=== PATIENT | female | born 1980 | race American Indian/Alaskan Native ===

== ENCOUNTER 2017-08-22 19:57 | Emergency (ER) | payer OTHER ==
[2017-08-23] MEDS ORDERED: CLARITIN ONE (08:13)
[2017-08-23] MEDS ORDERED: AUGMENTIN 875 MG ONE (08:13)
== END 2017-08-22 19:58 | disposition left against medical advice (07) ==
LOC: ED 19:57
DX: O26.891 Other specified pregnancy related conditions, first trimester (principal); R10.2 Pelvic and perineal pain; Z3A.00 Weeks of gestation of pregnancy not specified; Z53.21 Procedure and treatment not carried out due to patient leaving prior to being seen by health care provider

== ENCOUNTER 2017-12-08 07:37 | Inpatient (IN) | payer OTHER ==
[2017-12-08] MEDS ORDERED: ZOFRAN ONE (07:46)
[2017-12-08] MEDS ORDERED: LACTATED RINGERS 1,000 ML ONE ×2 (07:56→12:32)
[2017-12-08] MEDS ORDERED: COLACE PO PRN (08:13)
[2017-12-08] MEDS ORDERED: TYLENOL PO PRN (08:13)
--- NOTE | 2017-12-08 08:25 | History and Physical Report ---
History of Present Illness Date of examination: 12/08/17 (pt presented to Triage with c/o pain after taking 2 laxatives) Chief complaint: "I took 2 laxatives because I was so constipated." History of present illness: EDC Confirmation: 02/21/2018 Gestational Age: 7 5/7 weeks Past History : 3 Premature Births: 2 Living Children: 2 Para: 2 # 1 Delivery date: 1996 Weeks Gestation: 35 labor: yes Delivery type: Anesthesia type: none Delivery location: [facility] Sex: Female weight: 4-12 Comments: PTL # 2 Delivery date: 2000 Weeks Gestation: 36 Delivery type: Anesthesia type: none Delivery location: [place] Infant Sex: Female weight: 5-13 Comments: dilated - painful ctx Risk Factors: Smoked Tobacco Use: Never smoker Smokeless Tobacco Use: Never Passive smoke exposure: no Drug use: no HIV high-risk behavior: low risk Caffeine use: 0 drinks per day Alcohol use: yes Type: occ Drinks per day: <1 Seatbelt use: preg-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 Infection History Hx of STD: none HIV Risk Eval: low risk Hepatitis B Risk Eval: low risk Personal hx. of genital herpes: no Partner hx. of genital herpes: no Rash, Viral, or Febrile illness since last LMP? no Varicella/Chicken Pox Status: Previous Disease TB Risk: no Genetic History ADVANCED MATERNAL AGE Congenital Heart Defect: Mom: no Dad: no Ivett Disease: Mom: no Dad: no Thalassemia Mom: no Dad: no Neural Tube Defect Mom: no Dad: no Down's Syndrome Mom: no Dad: no Edward-Sachs Mom: no Dad: no Sickle Cell Disease/Trait Mom: no Dad: no Hemophilia Mom: no Dad: no Muscular Dystrophy Mom: no Dad: no Cystic Fibrosis Mom: no Dad: no Yoly Chorea Mom: no Dad: no Mental Retardation Mom: no Dad: no Fragile X Mom: no Dad: no Other Genetic/Chromosomal Disorder Mom: no Dad: no Child w/other defect Mom: no Dad: no Enviromental Exposures Xray Exposure: no Medication, drug, or alcohol use since LMP: no Chemical/Other Exposure: no Exposure to Cat Liter: no Hx of Parvovirus (Fifth Disease): no Occupational Exposure to Children: none Current Allergies: No known allergies Past History - Obstetrical History Expected Date of Delivery: 02/21/18 Actual Gestation: 29 Week(s) 2 Day(s) : 3 Para: 2 Hx # Term Pregnancies: 0 Number of Pregnancies: 2 Spontaneous Abortions: 0 Induced : 0 Number of Living Children: 2 Medications and Allergies Allergies Allergy/AdvReac Type Severity Reaction Status Date / Time No Known Allergies Allergy Verified 02/06/16 07:58 Home Medications Medication Instructions Recorded Confirmed Last Taken Type No Known Home Medications [No 02/06/16 02/06/16 Unknown History Reported Home Medications] - Vital Signs Vital signs: Vital Signs Temp 97.8 F 12/08/17 07:59 Temp Pulse Resp BP Pulse Ox 97.8 F 61 189/91 12/08/17 07:59 12/08/17 08:02 12/08/17 08:02 - Physical Exam Breasts: Positive: deferred Cardiovascular: Regular rate, Normal S1, Normal S2 Lungs: Positive: Normal air movement Abdomen: Positive: normal appearance, soft, normal bowel sounds. Negative: distention, tenderness Genitourinary (Female): Positive: normal external genitalia Vulva: both: normal Vagina: Positive: normal moisture. Negative: discharge Cervix: Negative: lesion, discharge Uterus: Positive: normal size, normal contour Adnexa: both: normal Anus/Rectum: Positive: normal perianal skin, heme negative. Negative: rectal mass, hemorrhoids Extremities: Positive: edema Deep Tendon Reflex Grade: Normal +2 - Obstetrical FHR: category 1 Uterine Contraction Monitor Mode: External Cervical Dilatation: 1 Cervical Effacement Percentage: 30 station: -5 Uterine Contraction Frequency (min): q1-2 Uterine Contraction Duration: 50 Uterine Contraction Pattern: Regular Uterine Tone Measurement Phase: Resting Uterine Contraction Intensity: Moderate Results Result Diagrams: 12/08/17 08:36 12/08/17 08:36 All other labs normal. HBsAg Screen Negative Negative *1 RPR Non Reactive Non Reactive *2 Rubella Antibodies, IgG 1.07 index Immune >0.99 *3 Non-immune <0.90 Equivocal 0.90 - 0.99 Immune >0.99 ABO Grouping O *4 Rh Factor Positive *5 Please note: Prior records for this patient's ABO / Rh type are not available for additional verification. Antibody Screen Negative Negative *6 WBC 7.0 x10E3/uL 3.4-10.8 *7 RBC [L] 3.65 x10E6/uL 3.77-5.28 *8 Hemoglobin 11.1 g/dL 11.1-15.9 *9 Hematocrit [L] 33.0 % 34.0-46.6 *10 MCV 90 fL 79-97 *11 MCH 30.4 pg 26.6-33.0 *12 MCHC 33.6 g/dL 31.5-35.7 *13 RDW 13.8 % 12.3-15.4 *14 Platelets 258 x10E3/uL 150-379 *15 Neutrophils 65 % Not Estab. *16 Lymphs 26 % Not Estab. *17 Monocytes 8 % Not Estab. *18 Eos 1 % Not Estab. *19 Basos 0 % Not Estab. *20 ! Immature Cells <No Reported Value> *21 Neutrophils (Absolute) 4.5 x10E3/uL 1.4-7.0 *22 Lymphs (Absolute) 1.8 x10E3/uL 0.7-3.1 *23 Monocytes(Absolute) 0.6 x10E3/uL 0.1-0.9 *24 Eos (Absolute) 0.1 x10E3/uL 0.0-0.4 *25 Baso (Absolute) 0.0 x10E3/uL 0.0-0.2 *26 ! Immature Granulocytes 0 % Not Estab. *27 ! Immature Grans (Abs) 0.0 x10E3/uL 0.0-0.1 *28 ! NRBC <No Reported Value> *29 Hematology Comments: <No Reported Value> *30 Tests: (2) Panel 707909 ([id number]) HIV Screen 4th Generation wRfx Non Reactive Non Reactive *31 Tests: (3) HCV Ab w/Rflx to Verification (228582) ! HCV Ab <0.1 s/co ratio 0.0-0.9 *32 Tests: (4) Comment: (557722) ! Comment: SPRCS *33 Non reactive HCV antibody screen is consistent with no HCV infection, unless recent infection is suspected or other evidence exists to indicate HCV infection. Tests: (5) Urine Culture, Routine (940907) Urine Culture, Routine Final report *34 Tests: (6) Result (039487) ! Result 1 VIRIST *35 Viridans streptococcus group 10,000-25,000 colony forming units per mL Susceptibility not normally performed on this organism. Assessment and Plan Pt presented to Triage with c/o constipation States she took 2 little pink pills but does not know the name of the medication. Ketan Q 1-2 min SVE 1 , thick, high. BP 200/100 X 2 Decision to admit to APU for evaluation and monitoring. aware. [facility] labs MGSO4 Apresoline ordered. US ordered. - Patient Problems (1) 29 weeks gestation of Onset Date: ~12/08/17 Current Visit: Yes Status: Acute (2) Elevated blood pressure affecting in third trimester, antepartum Onset Date: ~12/08/17 Current Visit: Yes Status: Acute (3) uterine contractions in third trimester, antepartum Onset Date: ~12/08/17 Current Visit: Yes Status: Acute
[2017-12-08] MEDS ORDERED: APRESOLINE ONE ×2 (08:30→19:10)
[2017-12-08] MEDS ORDERED: BRETHINE ONE (08:46)
[2017-12-08 08:50] LABS: Bacteria,Urine 1+ /HPF (Negative); Bilirubin,Urine NEG (Negative); Blood,Urine SM (Negative); Color,Urine Yellow (Yellow); Mucus,Urine 2+ /HPF; Urobilinogen,Urine < 2.0 mg/dL (<2.0)
[2017-12-08] MEDS ORDERED: MAGNESIUM SULFATE 40GM/1000ML 40 GM/1,000 ML BAG IV SCH ×2 (09:00→11:00)
[2017-12-08] MEDS ORDERED: CELESTONE SOLUSPAN IM SCH (09:00)
[2017-12-08] MEDS ORDERED: APRESOLINE IV ONE ×2 (09:00→19:00)
[2017-12-08] MEDS ORDERED: BRETHINE SUB-Q ONE (09:00)
[2017-12-08] MEDS ORDERED: MAGNESIUM SULFATE 4GM/100ML 4 GM/100 ML BAG IV ONE (09:00)
[2017-12-08 09:12] LABS: Hematocrit 32.8 % (30.3-42.9); Hemoglobin 10.9 gm/dl (10.1-14.3); Mean Corpuscular HGB Conc 33 % (30-34); Mean Corpuscular Hemoglobin 30 pg (28-32); Mean Corpuscular Volume 91 fl (79-97); Platelet Count 137 K/mm3 (140-440); Red Blood Count 3.62 M/mm3 (3.65-5.03); Red Cell Distribution Width 13.6 % (13.2-15.2)
[2017-12-08 09:16] LABS: Alanine Aminotransferase 370 units/L (7-56); Uric Acid 4.4 mg/dL (3.5-7.6)
[2017-12-08 09:18] LABS: Albumin 3.2 g/dL (3.9-5); BUN/Creatinine Ratio 15; Blood Urea Nitrogen 9 mg/dL (7-17); Calcium 8.9 mg/dL (8.4-10.2); Hemolysis Index 91
[2017-12-08] MEDS ORDERED: PEPCID IV ONE ×2 (09:28→14:43)
[2017-12-08] MEDS ORDERED: PITOCin/NS 20 UNIT/1000ML DRIP 20,000 MILLIUNITS/1,000 ML BAG IV ONE (09:28)
[2017-12-08] MEDS ORDERED: BICITRA ONE (09:28)
[2017-12-08] MEDS ORDERED: REGLAN ONE (09:28)
[2017-12-08] MEDS ORDERED: ANCEF/STERILE WATER 2 GM/20 ML 2 GM/20 ML SYRINGE IV ONE (09:28)
[2017-12-08] MEDS ORDERED: XYLOCAINE MPF 2% ONE (09:40)
[2017-12-08] MEDS ORDERED: SUBLIMAZE ONE ×3 (09:40→10:31)
[2017-12-08] MEDS ORDERED: QUELICIN ONE (09:40)
[2017-12-08] MEDS ORDERED: DIPRIVAN 10 MG/ML IV ONE (09:40)
[2017-12-08] MEDS ORDERED: ANCEF/STERILE WATER 2 GM/20 ML IV ONE (09:46)
[2017-12-08] MEDS ORDERED: NACL 0.9% IR ONE (10:00)
[2017-12-08] MEDS ORDERED: WATER FOR IRRIG STERILE IR ONE (10:00)
[2017-12-08 10:06] LABS: Basophils % (Manual) 0 % (0.0-1.8); Eosinophils % (Manual) 0 % (0.0-4.3); Myelocytes # (Manual) 0.5 K/mm3; Total Cells Counted 100
[2017-12-08 10:07] LABS: Anisocytosis 1+; Platelet Estimate Consistent w Auto
--- NOTE | 2017-12-08 10:10 | Event Note ---
Date: 12/08/17 (deep variable decels noted) Pt turned from side to side O2 on. enroute US @ BS to observe FHR 114 drops to 6o Stat c/s called in house has agreed to start section. Explained to pt need for operative intervention Consents signed. C/S prep done.
--- NOTE | 2017-12-08 10:16 | Operative Report ---
Operative Report Operative Report: DATE: 01/04/2018 PREOPERATIVE DIAGNOSIS: 37-year-old at 29+4 weeks, category 3 tracing POSTOP DIAGNOSIS: As above NAME OF PROCEDURE: Emergency Primary low transverse section SURGEON: STEPHANIE WEINSTEIN MD TELEPHONE OPERATOR: Tereza Vu CNM ANESTHESIA: General EBL: 750 mL (see Dr. Fong's notes for details) FINDINGS: See Dr. Fong's note BRIEF NOTE: Called emergently and notified patient having recurrent decelerations, category 3 tracing with stat called. Provider Dr. Fong in route DESCRIPTION OF PROCEDURE: After informed consent, patient was taken to the operating room where she was prepped and draped in a sterile fashion. Pfannestial incision was performed 2 cm above the pubic symphysis. This was then carried down to the underlying rectus fascia which was scored in the midline. The fascial incision was extended bluntly manually, the rectus was manually and the peritoneal cavity was entered without difficulty. After good visualization of the bladder the peritoneal layer was extended up and down; bladder blade was placed in the patient's pelvic cavity. A hysterotomy incision was then performed with clear amniotic fluid noted. in cephalic presentation was delivered without difficulty in the usual manner; cord was clamped cut and was handed over to waiting NICU staff. The placenta was then delivered intact, the uterus was then exteriorized cleared of all clots and debris. I then signed out the case to the provider Dr. Fong.
--- NOTE | 2017-12-08 10:20 | Ultrasound Report ---
OB ULTRASOUND History gestational hypertension. Technique: Transabdominal ultrasound with Doppler interrogation. Gestation: Single Position: Cephalic Amniotic Fluid: Borderline increased GIFTY = 24.3 cm Placenta: Anterior Placental Grade: 1 Heart Rate: 145 BPM BPD: 7.3 cm = 29 w 2 d HC: 26.5 cm = 28 w 6 d AC: 25.2 cm = 29 w 3 d FL: 5.7 cm = 29 w 5 d HC/AC Ratio: 1.05 Cephalic Index: 83.3 Estimated Weight: 1392 grams Clinical age = 29 w 2 d EDC: 02/21/18 US Gest. Age = 29 w 2 d EDC: 02/21/18 IMPRESSION: Viable, single intrauterine as described. No evidence for abruption.
[2017-12-08] MEDS ORDERED: NARCAN 0.4 MG/1 ML IV PRN (10:54)
[2017-12-08] MEDS ORDERED: DILAUDID PCA 6MG/30ML IV SCH (11:00)
[2017-12-08 12:05] LABS: Total Volume,Urine TNR
[2017-12-08] MEDS: LACTATED RINGERS 500 ML IV SCH (12:40)
--- NOTE | 2017-12-08 13:05 | Post Anesthesia Evaluation ---
- Post Anesthesia Evaluation Patient Participated: Yes Airway Patent: Yes Stable Respiratory Function: Yes Nausea/Vomiting: No Temp > 96.8F: Yes Pain Manageable: Yes Adequeate Hydration: Yes
--- NOTE | 2017-12-08 13:05 | Anesthesia Consultation ---
Anesthesia Consult and Med Hx Date of service: 12/08/17 - Airway Anesthetic Teeth Evaluation: Good ROM Head & Neck: Adequate Mental/Hyoid Distance: Adequate Mallampati Class: Class III Intubation Access Assessment: Good - Pulmonary Exam CTA: Yes - Cardiac Exam Cardiac Exam: No Murmur - Pre-Operative Health Status ASA Pre-Surgery Classification: ASA3 Proposed Anesthetic Plan: General - Pulmonary Hx Asthma: Yes
--- NOTE | 2017-12-08 13:50 | Operative Report ---
Operative Report Operative Report: Date of procedure: 12/08/2017 Pre-operative diagnosis: Intrauterine at 29 weeks with severe preeclampsia and severe bradycardia Post-operative diagnosis: Same Procedure name(s): Stat primary low transverse section Surgeon: Elvin Fong MD, surgery started by Dr. Pratt Head Counselor: [] Anesthesia: Gen. EBL: 750 mL Complications: none Findings: Female infant weight and Apgars not available at time of dictation Specimen(s): Placenta Procedure: Please see Dr. Tyler start of surgery with incision delivering the and delivery of placenta. I took over with the closing of the uterus The uterine incision was closed in layers. The first incision was closed in a locking manner using 0 Vicryl. This was followed by imbricating stitch also with 0 Vicryl. This closure was hemostatic. The bladder flap was copiously irrigated and found to be hemostatic. The pelvis was copiously irrigated and found to be hemostatic. The uterus was then placed back to the patient's abdomen. Surgicel was placed across the uterine incision. The retractors were removed. The rectus muscles were inspected and found to be hemostatic. The fascia was then closed in a running manner using 0 Vicryl. This incision was hemostatic irrigation Bovie. The skin was reapproximated with 4-0 Vicryl subcuticularly. The patient tolerated procedure well. Her urine was clear. The was admitted to the intensive care nursery. The patient was awakened in operating room. The patient was accompanied to recovery room in good condition. Instrument count correct 3.
[2017-12-08 14:34] LABS: Alanine Aminotransferase 368 units/L (7-56)
[2017-12-08] MEDS ORDERED: REGLAN IV ONE (14:43)
[2017-12-08] MEDS ORDERED: BICITRA PO ONE (14:43)
[2017-12-08] MEDS ORDERED: LASIX IV SCH ×2 (15:00)
[2017-12-08] MEDS ORDERED: PITOCin/NS 20 UNIT/1000ML DRIP 20 UNITS/1,000 ML BAG IV SCH (15:00)
[2017-12-08] MEDS ORDERED: ANCEF/STERILE WATER 2 GM/20 ML 2 GM/20 ML SYRINGE IV NR (15:00)
[2017-12-08] MEDS ORDERED: LACTATED RINGERS 1,000 ML IV SCH (15:00)
--- NOTE | 2017-12-08 16:22 | Event Note ---
Date: 12/08/17 (called by RN report elevated BP) BP 170-160/90 Pt sleeping soundly Urine output [address]Youngblood Leos Labetalol 200mg po BID
[2017-12-08] MEDS: NORMODYNE PO SCH ×2 (16:38→21:51)
[2017-12-08 19:58] LABS: Basophils % (Auto) 0.2 % (0.0-1.8); Hematocrit 33.4 % (30.3-42.9); Hemoglobin 10.9 gm/dl (10.1-14.3); Lymphocytes # (Auto) 0.8 K/mm3 (1.2-5.4); Lymphocytes % (Auto) 7.4 % (13.4-35.0); Mean Corpuscular HGB Conc 33 % (30-34); Mean Corpuscular Hemoglobin 31 pg (28-32); Mean Corpuscular Volume 95 fl (79-97); Monocytes # (Auto) 0.6 K/mm3 (0.0-0.8); Monocytes % (Auto) 5.9 % (0.0-7.3); Red Blood Count 3.51 M/mm3 (3.65-5.03); Red Cell Distribution Width 14.6 % (13.2-15.2)
[2017-12-08 20:19] LABS: Albumin 3.2 g/dL (3.9-5); BUN/Creatinine Ratio 16; Blood Urea Nitrogen 8 mg/dL (7-17); Hemolysis Index 302
[2017-12-08 20:30] LABS: Calcium 7.5 mg/dL (8.4-10.2)
[2017-12-08 20:31] LABS: Alanine Aminotransferase 321 units/L (7-56)
[2017-12-08 20:56] LABS: Amphetamine Screen,Urine PRESUMPTIVE NEGATIVE; Benzodiazepines Screen,Urine PRESUMPTIVE NEGATIVE; Cannabinoid Screen,Urine PRESUMPTIVE NEGATIVE; Cocaine Screen,Urine PRESUMPTIVE NEGATIVE; Methadone Screen,Urine PRESUMPTIVE NEGATIVE; Opiate Screen,Urine PRESUMPTIVE NEGATIVE
[2017-12-08] MEDS ORDERED: BENADRYL ONE (21:51)
[2017-12-08] MEDS ORDERED: BANOPHEN PO PRN (21:54)
[2017-12-08] MEDS ORDERED: BENADRYL IV ONE (21:54)
[2017-12-08] MEDS ORDERED: NORMODYNE PO SCH (22:00)
[2017-12-09] MEDS: LACTATED RINGERS 500 ML IV SCH (00:10)
[2017-12-09 00:36] LABS: Platelet Count 37 K/mm3 (140-440)
[2017-12-09] MEDS ORDERED: PITOCin/NS 20 UNIT/1000ML DRIP 20 UNITS/1,000 ML BAG IV SCH (01:28)
[2017-12-09] MEDS ORDERED: LANSINOH TP PRN (01:28)
[2017-12-09] MEDS ORDERED: TUCKS PAD TP PRN (01:28)
[2017-12-09] MEDS ORDERED: MOTRIN PO PRN (01:28)
[2017-12-09] MEDS ORDERED: SODIUM CHLORIDE FLUSH SYRINGE 10 ML IV PRN (01:28)
[2017-12-09] MEDS ORDERED: D5LR 1,000 ML IV SCH (01:28)
[2017-12-09] MEDS ORDERED: MILK OF MAGNESIA PO PRN (01:28)
[2017-12-09] MEDS ORDERED: NARCAN 0.4 MG/1 ML IV PRN (01:28)
[2017-12-09] MEDS: ANCEF/NS 1 GM/50 ML 1 GM/50 ML BAG IV SCH ×2 (01:52→10:26)
[2017-12-09 02:26] LABS: Basophils % (Auto) 0.1 % (0.0-1.8); Hematocrit 25.5 % (30.3-42.9); Hemoglobin 8.4 gm/dl (10.1-14.3); Lymphocytes # (Auto) 0.8 K/mm3 (1.2-5.4); Lymphocytes % (Auto) 5.2 % (13.4-35.0); Mean Corpuscular HGB Conc 33 % (30-34); Mean Corpuscular Hemoglobin 30 pg (28-32); Mean Corpuscular Volume 90 fl (79-97); Monocytes % (Auto) 7.1 % (0.0-7.3); Platelet Count 118 K/mm3 (140-440); Red Blood Count 2.84 M/mm3 (3.65-5.03); Red Cell Distribution Width 13.5 % (13.2-15.2)
[2017-12-09 02:44] LABS: Alanine Aminotransferase 249 units/L (7-56); BUN/Creatinine Ratio 11; Blood Urea Nitrogen 8 mg/dL (7-17); Calcium 6.5 mg/dL (8.4-10.2); Hemolysis Index 8
[2017-12-09] MEDS ORDERED: MAGNESIUM SULFATE 40GM/1000ML 40 GM/1,000 ML BAG IV SCH (03:00)
[2017-12-09 07:23] LABS: Hematocrit 21.7 % (30.3-42.9); Hemoglobin 7.2 gm/dl (10.1-14.3); Lymphocytes # (Auto) 0.8 K/mm3 (1.2-5.4); Lymphocytes % (Auto) 5.9 % (13.4-35.0); Mean Corpuscular HGB Conc 33 % (30-34); Mean Corpuscular Hemoglobin 30 pg (28-32); Mean Corpuscular Volume 89 fl (79-97); Monocytes % (Auto) 7.6 % (0.0-7.3); Red Blood Count 2.43 M/mm3 (3.65-5.03); Red Cell Distribution Width 13.9 % (13.2-15.2)
[2017-12-09 07:55] LABS: Platelet Count 94 K/mm3 (140-440)
--- NOTE | 2017-12-09 08:06 | Progress Note ---
Assessment and Plan - Patient Problems (1) HELLP syndrome (HELLP), third trimester Current Visit: Yes Status: Acute Plan to address problem: -con't to monitor labs -LFTs treanding down / Platelets have dropped on recent labs. Will repeat in am -cont magnesuim x 24 hours will d/c this pm -bps are well controlled at this time -UOP is adequate (2) Delivery by emergency section Current Visit: Yes Status: Acute Plan to address problem: routine pp care will xfer to mother/baby at this time Subjective - Subjective Date of service: 12/09/17 Principal diagnosis: POD #1 s/p stat c/s d/t NRFT with Pre E/ HEELP Interval history: pt states pain is well controlled. no c/o at this time. Pt desires to eat this am. Will start with clear diet and ADAT. Patient reports: appetite normal, voiding normally (with vuong cath still in place due to still being of Magnesium), pain well controlled, no flatus, no bowel movement Tyro: in NICU Objective - Vital Signs Latest vital signs: Vital Signs Temp Pulse Resp BP BP Pulse Ox 12/09/17 08:01 76 96 12/09/17 07:56 75 111/61 96 12/09/17 07:55 96.7 F L 76 15 111/61 12/09/17 07:51 78 97 12/09/17 07:46 91 H 95 12/09/17 07:41 82 96 12/09/17 07:36 81 94 12/09/17 07:31 78 95 12/09/17 07:28 86 106/57 12/09/17 07:26 81 95 12/09/17 07:21 80 95 12/09/17 07:16 79 95 12/09/17 07:11 80 94 12/09/17 07:06 79 94 12/09/17 07:01 84 95 12/09/17 06:56 82 94 12/09/17 06:51 80 94 12/09/17 06:46 83 94 12/09/17 06:41 83 94 12/09/17 06:36 82 92 12/09/17 06:31 84 92 12/09/17 06:28 82 98/50 12/09/17 06:26 83 94 12/09/17 06:21 82 94 09/04/18 06:16 82 94 04/18 06:11 86 95 04/18 06:06 94 H 94 12/09/18 06:01 83 94 04/18 05:56 82 95 04/18 05:51 83 94 04/18 05:46 83 95 12/09/18 05:41 84 94 04/18 05:36 84 95 12/09/18 05:31 84 95 04/18 05:28 83 106/55 18 05:26 84 95 /04/18 05:21 87 95 12/09/18 05:16 84 96 18 05:11 96 H 95 18 05:06 85 95 18 05:01 84 95 18 04:56 84 95 18 04:51 83 96 18 04:46 85 95 12/09/18 04:41 84 95 18 04:36 88 94 18 04:31 84 95 18 04:28 82 100/54 18 04:26 84 95 12/09/18 04:21 85 95 12/09/18 04:16 85 94 12/09/18 04:11 86 94 18 04:06 86 94 18 04:01 87 95 12/09/18 03:56 87 94 12/09/18 03:51 86 94 //18 03:46 88 94 18 03:41 86 95 04/18 03:36 86 94 18 03:31 84 95 04/18 03:28 86 102/54 18 03:26 85 95 /04/18 03:21 85 95 04/18 03:16 82 96 04/18 03:11 85 94 04/18 03:06 84 95 12/09/18 03:03 97.6 F 16 18 03:01 83 95 12/09/18 03:00 83 94 /04/18 02:56 83 95 04/18 02:51 89 96 18 02:46 99 H 95 18 02:44 97 H 93 12/09/17 02:41 86 94 12/09/17 02:38 83 93 12/09/17 02:36 82 97 12/09/17 02:31 87 97 12/09/17 02:28 81 135/82 12/09/17 02:26 83 96 12/09/17 02:21 82 97 12/09/17 02:16 82 96 12/09/17 02:11 80 96 12/09/17 02:06 84 96 12/09/17 02:01 86 96 12/09/17 01:56 84 97 12/09/17 01:51 88 97 12/09/17 01:46 90 97 12/09/17 01:42 88 94 12/09/17 01:41 92 H 94 12/09/17 01:36 84 97 12/09/17 01:31 87 96 12/09/17 01:28 85 122/73 12/09/17 01:26 86 96 12/09/17 01:21 87 96 12/09/17 01:16 86 96 12/09/17 01:11 85 97 12/09/17 01:06 85 96 12/09/17 01:01 86 96 12/09/17 00:56 87 96 12/09/17 00:51 86 96 12/09/17 00:46 87 96 12/09/17 00:41 86 97 12/09/17 00:36 86 98 12/09/17 00:31 92 H 98 12/09/17 00:28 88 127/71 12/09/17 00:26 88 97 12/09/17 00:21 85 96 12/09/17 00:16 86 97 12/09/17 00:11 84 97 12/09/17 00:06 86 96 12/09/17 00:01 84 97 12/08/17 23:56 85 96 12/08/17 23:51 85 96 12/08/17 23:46 86 96 12/08/17 23:41 86 97 12/08/17 23:36 87 96 12/08/17 23:31 83 97 12/08/17 23:28 85 121/70 12/08/17 23:26 86 97 12/08/17 23:21 85 97 12/08/17 23:16 86 96 12/08/17 23:11 86 97 12/08/17 23:06 85 98 12/08/17 23:01 97.5 F L 88 16 96 12/08/17 22:56 87 96 12/08/17 22:51 88 96 12/08/17 22:46 88 96 18 22:41 89 97 18 22:36 90 96 12/08/17 22:31 89 97 12/08/17 22:26 92 H 97 12/08/17 22:21 91 H 131/74 97 12/08/17 22:16 93 H 97 12/08/17 22:11 95 H 97 12/08/17 22:06 97 H 97 12/08/17 22:01 100 H 98 12/08/17 21:56 112 H 100 12/08/17 21:51 89 157/87 100 12/08/17 21:46 91 H 99 12/08/17 21:41 91 H 100 12/08/17 21:36 94 H 100 12/08/17 21:31 86 97 12/08/17 21:26 92 H 98 12/08/17 21:21 85 98 12/08/17 21:16 86 98 12/08/17 21:11 86 98 18 21:09 88 156/81 12/08/17 20:51 86 146/84 97 12/08/17 20:46 85 99 18 20:41 87 99 12/08/17 20:36 90 139/79 97 18 20:31 91 H 96 12/08/17 20:26 87 97 12/08/17 20:21 87 142/82 97 12/08/17 20:16 87 97 18 20:11 89 97 12/08/17 20:06 88 146/81 97 18 20:01 90 98 18 19:56 85 98 18 19:51 88 160/84 12/08/17 19:50 87 100 18 19:46 91 H 98 18 19:41 78 173/94 18 19:40 81 98 18 19:36 97 H 91 18 19:32 82 174/89 12/08/17 19:31 81 89 18 19:30 82 96 18 19:26 79 97 18 19:21 76 183/89 18 19:20 77 99 18 19:16 77 97 18 19:15 97.1 F L 16 12/08/17 19:10 71 201/101 97 18 19:05 76 99 18 19:00 76 97 18 18:55 72 96 18 18:54 71 201/101 18 18:50 75 97 18 18:45 71 97 18 18:40 73 96 18 18:35 68 98 18 18:30 98.3 F 73 18 98 12/08/17 18:25 75 96 18 18:24 71 182/93 12/08/17 18:20 67 98 18 18:16 72 183/90 12/08/17 18:15 75 97 18 18:10 71 98 18 18:05 72 96 18 18:00 75 98 18 17:55 77 98 18 17:54 72 183/88 12/08/17 17:53 20 18 17:50 74 97 18 17:45 72 98 18 17:40 72 99 18 17:35 75 97 18 17:30 72 98 18 17:25 73 97 18 17:24 73 176/96 18 17:21 72 165/87 18 17:20 78 98 18 17:15 74 99 18 17:10 72 98 18 17:05 73 99 18 17:00 71 98 18 16:55 71 97 18 16:54 71 188/93 18 16:50 70 99 18 16:45 74 100 18 16:40 69 99 18 16:38 75 176/90 18 16:35 74 99 18 16:30 76 99 09/03/18 16:25 75 99 18 16:24 73 176/90 18 16:20 72 99 18 16:15 71 98 18 16:10 75 97 18 16:05 74 98 18 16:01 71 167/90 18 16:00 71 98 18 15:55 75 98 18 15:54 70 173/90 12/08/17 15:53 20 12/08/17 15:50 75 97 18 15:45 72 98 12/08/17 15:40 71 98 12/08/17 15:35 74 97 12/08/17 15:30 75 98 12/08/17 15:25 75 97 12/08/17 15:24 74 166/88 12/08/17 15:20 76 97 12/08/17 15:15 75 97 12/08/17 15:10 76 97 12/08/17 15:05 74 97 12/08/17 15:00 81 98 18 14:55 76 97 18 14:54 76 164/83 12/08/17 14:50 77 97 18 14:45 78 98 12/08/17 14:40 78 97 18 14:35 77 97 18 14:30 76 97 18 14:25 78 97 18 14:24 85 148/73 12/08/17 14:20 77 97 12/08/17 14:15 81 98 18 14:10 82 99 18 14:09 77 160/72 12/08/17 14:05 84 100 18 14:00 80 99 18 13:58 78 155/71 12/08/17 13:55 74 100 18 13:54 77 185/82 12/08/17 13:53 20 18 13:50 85 98 18 13:45 86 97 18 13:40 85 97 18 13:35 87 98 18 13:30 82 97 18 13:25 83 96 12/08/17 13:24 82 146/75 12/08/17 13:20 97.2 F L 20 12/08/17 12:39 92 H 18 136/71 97 12/08/17 12:18 92 H 18 149/84 97 12/08/17 12:06 98.0 F 97 H 18 100 12/08/17 11:40 88 20 150/84 99 12/08/17 11:25 84 18 144/84 99 12/08/17 11:10 85 22 152/90 12/08/17 10:55 91 H 20 161/84 99 12/08/17 10:50 84 24 154/88 100 12/08/17 10:45 90 24 154/83 99 12/08/17 10:40 98.0 F 94 H 22 160/95 99 12/08/17 09:36 104 H 100 12/08/17 09:35 109 H 84 12/08/17 09:31 103 H 100 12/08/17 09:30 102 H 149/78 12/08/17 09:26 101 H 100 12/08/17 09:25 103 H 130/63 12/08/17 09:21 96 H 100 12/08/17 09:16 96 H 140/67 100 12/08/17 09:11 96 H 100 12/08/17 09:06 94 H 94 12/08/17 09:05 87 95 12/08/17 09:00 96.8 F L 90 20 95 12/08/17 08:58 88 165/79 12/08/17 08:55 88 94 12/08/17 08:53 83 171/81 12/08/17 08:50 82 98 12/08/17 08:49 78 92 12/08/17 08:48 75 201/89 12/08/17 08:45 75 100 12/08/17 08:42 71 195/93 12/08/17 08:40 73 81 L 12/08/17 08:39 80 L 12/08/17 08:37 66 198/97 12/08/17 08:34 66 93 12/08/17 08:33 65 93 12/08/17 08:24 63 202/98 Intake and Output 12/08/17 12/09/17 12/09/17 22:59 06:59 14:59 Intake Total 300 Output Total 1465 295 35 Balance -1165 -295 -35 Intake: Oral 300 Output: Urine 1465 295 35 Indwelling Catheter 1390 295 35 Uretheral (Vuong) 75 Other: Total, Intake Amount 150 Total, Output Amount 75 40 35 - Exam Cardiovascular: Present: Normal S1, Normal S2 Lungs: Present: Normal air movement Abdomen: Present: normal appearance, soft, other. Absent: distention, tenderness, guarding Uterus: Present: normal, firm, fundal height below umbilicus Extremities: Present: normal Deep Tendon Reflex Grade: Normal +2 Incision: Present: normal, dry, intact - Labs Labs: Abnormal lab results 12/08/17 12/08/17 12/08/17 Range/Units 08:15 08:36 08:36 WBC 15.6 H (4.5-11.0) K/mm3 RBC 3.62 L (3.65-5.03) M/mm3 Hgb (10.1-14.3) gm/dl Hct (30.3-42.9) % Plt Count 137 L (140-440) K/mm3 Lymph % (Auto) (13.4-35.0) % Upton % (Auto) (0.0-7.3) % Lymph # (1.2-5.4) K/mm3 Upton # (0.0-0.8) K/mm3 Seg Neutrophils % (40.0-70.0) % Seg Neuts % (Manual) 84.0 H (40.0-70.0) % Lymphocytes % (Manual) 7.0 L (13.4-35.0) % Seg Neutrophils # (1.8-7.7) K/mm3 Seg Neutrophils # Man 13.1 H (1.8-7.7) K/mm3 Lymphocytes # (Manual) 1.1 L (1.2-5.4) K/mm3 Sodium (137-145) mmol/L Potassium (3.6-5.0) mmol/L Chloride (98-107) mmol/L Carbon Dioxide 18 L (22-30) mmol/L Creatinine 0.6 L (0.7-1.2) mg/dL Glucose (65-100) mg/dL POC Glucose (70-105) Calcium (8.4-10.2) mg/dL Magnesium (1.7-2.3) mg/dL Total Bilirubin (0.1-1.2) mg/dL AST 368 H (5-40) units/L ALT 368 H (7-56) units/L Lactate Dehydrogenase (91-180) units/L Albumin 3.2 L (3.9-5) g/dL Urine Total Protein 273 H (5-11.8) mg/dL 12/08/17 12/08/17 12/08/17 Range/Units 08:36 18:46 19:45 WBC (4.5-11.0) K/mm3 RBC 3.51 L (3.65-5.03) M/mm3 Hgb (10.1-14.3) gm/dl Hct (30.3-42.9) % Plt Count 37 L (140-440) K/mm3 Lymph % (Auto) 7.4 L (13.4-35.0) % Upton % (Auto) (0.0-7.3) % Lymph # 0.8 L (1.2-5.4) K/mm3 Upton # (0.0-0.8) K/mm3 Seg Neutrophils % 86.5 H (40.0-70.0) % Seg Neuts % (Manual) (40.0-70.0) % Lymphocytes % (Manual) (13.4-35.0) % Seg Neutrophils # 8.9 H (1.8-7.7) K/mm3 Seg Neutrophils # Man (1.8-7.7) K/mm3 Lymphocytes # (Manual) (1.2-5.4) K/mm3 Sodium (137-145) mmol/L Potassium (3.6-5.0) mmol/L Chloride (98-107) mmol/L Carbon Dioxide (22-30) mmol/L Creatinine 0.6 L (0.7-1.2) mg/dL Glucose (65-100) mg/dL POC Glucose 142 H (70-105) Calcium (8.4-10.2) mg/dL Magnesium (1.7-2.3) mg/dL Total Bilirubin (0.1-1.2) mg/dL AST 369 H (5-40) units/L ALT 370 H (7-56) units/L Lactate Dehydrogenase 773 H (91-180) units/L Albumin (3.9-5) g/dL Urine Total Protein (5-11.8) mg/dL 12/08/17 12/09/17 12/09/17 Range/Units 19:45 00:28 01:45 WBC 14.8 H (4.5-11.0) K/mm3 RBC 2.84 L (3.65-5.03) M/mm3 Hgb 8.4 L (10.1-14.3) gm/dl Hct 25.5 L D (30.3-42.9) % Plt Count 118 L D (140-440) K/mm3 Lymph % (Auto) 5.2 L (13.4-35.0) % Upton % (Auto) (0.0-7.3) % Lymph # 0.8 L (1.2-5.4) K/mm3 Upton # 1.0 H (0.0-0.8) K/mm3 Seg Neutrophils % 87.6 H (40.0-70.0) % Seg Neuts % (Manual) (40.0-70.0) % Lymphocytes % (Manual) (13.4-35.0) % Seg Neutrophils # 12.9 H (1.8-7.7) K/mm3 Seg Neutrophils # Man (1.8-7.7) K/mm3 Lymphocytes # (Manual) (1.2-5.4) K/mm3 Sodium 131 L D (137-145) mmol/L Potassium 6.0 H D (3.6-5.0) mmol/L Chloride (98-107) mmol/L Carbon Dioxide 14 L (22-30) mmol/L Creatinine 0.5 L (0.7-1.2) mg/dL Glucose 158 H (65-100) mg/dL POC Glucose (70-105) Calcium 7.5 L D (8.4-10.2) mg/dL Magnesium 6.00 H 6.70 H (1.7-2.3) mg/dL Total Bilirubin 2.50 H (0.1-1.2) mg/dL AST 582 H (5-40) units/L ALT 321 H (7-56) units/L Lactate Dehydrogenase (91-180) units/L Albumin 3.2 L (3.9-5) g/dL Urine Total Protein (5-11.8) mg/dL 12/09/17 12/09/17 12/09/17 Range/Units 01:45 06:59 06:59 WBC 13.2 H (4.5-11.0) K/mm3 RBC 2.43 L (3.65-5.03) M/mm3 Hgb 7.2 L (10.1-14.3) gm/dl Hct 21.7 L (30.3-42.9) % Plt Count 94 L (140-440) K/mm3 Lymph % (Auto) 5.9 L (13.4-35.0) % [place] % (Auto) 7.6 H (0.0-7.3) % Lymph # 0.8 L (1.2-5.4) K/mm3 [place] # 1.0 H (0.0-0.8) K/mm3 Seg Neutrophils % 86.5 H (40.0-70.0) % Seg Neuts % (Manual) (40.0-70.0) % Lymphocytes % (Manual) (13.4-35.0) % Seg Neutrophils # 11.4 H (1.8-7.7) K/mm3 Seg Neutrophils # Man (1.8-7.7) K/mm3 Lymphocytes # (Manual) (1.2-5.4) K/mm3 Sodium 131 L (137-145) mmol/L Potassium (3.6-5.0) mmol/L Chloride 95.9 L (98-107) mmol/L Carbon Dioxide 20 L (22-30) mmol/L Creatinine (0.7-1.2) mg/dL Glucose 129 H (65-100) mg/dL POC Glucose (70-105) Calcium 6.5 L (8.4-10.2) mg/dL Magnesium 5.80 H (1.7-2.3) mg/dL Total Bilirubin (0.1-1.2) mg/dL AST 401 H 252 H (5-40) units/L ALT 249 H 179 H (7-56) units/L Lactate Dehydrogenase (91-180) units/L Albumin (3.9-5) g/dL Urine Total Protein (5-11.8) mg/dL
[2017-12-09] MEDS: PRENATAL VITAMIN PO SCH (10:25)
[2017-12-09] MEDS: NORCO 5/325 PO PRN ×2 (15:51→22:12)
[2017-12-09] MEDS: NORMODYNE PO SCH ×2 (18:17→23:19)
[2017-12-09] MEDS ORDERED: MYLICON PO PRN (22:04)
--- NOTE | 2017-12-10 06:51 | Progress Note ---
Assessment and Plan - Patient Problems (1) delivery delivered Onset Date: ~12/08/17 Current Visit: Yes Status: Acute Plan to address problem: pt sleeping easily aroused No c/o voiced VSS FF below umb Lochia scant Incision D&I H&H 10/25 Pt is asymptomatic anemia Stable s/p c/s; PreE P: continue pathway Advance diet and activity. Encouraged pt to use IS more frequently. Abdominal binder ordered. Subjective - Subjective Date of service: 12/10/17 (pt sleeping soundly; no c/o voiced) Principal diagnosis: POD #2 s/p stat c/s d/t NRFT with Pre E/ HEELP Interval history: EDC Confirmation: 02/21/2018 Gestational Age: 7 5/7 weeks Past History : 3 Premature Births: 2 Living Children: 2 Para: 2 # 1 Delivery date: 1996 Weeks Gestation: 35 labor: yes Delivery type: Anesthesia type: none Delivery location: [facility] Infant Sex: Female weight: 4-12 Comments: PTL # 2 Delivery date: 2000 Weeks Gestation: 36 Delivery type: Anesthesia type: none Delivery location: [place] Sex: Female weight: 5-13 Comments: dilated - painful ctx Risk Factors: Smoked Tobacco Use: Never smoker Smokeless Tobacco Use: Never Passive smoke exposure: no Drug use: no HIV high-risk behavior: low risk Caffeine use: 0 drinks per day Alcohol use: yes Type: occ Drinks per day: <1 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 Infection History Hx of STD: none HIV Risk Eval: low risk Hepatitis B Risk Eval: low risk Personal hx. of genital herpes: no Partner hx. of genital herpes: no Rash, Viral, or Febrile illness since last LMP? no Varicella/Chicken Pox Status: Previous Disease TB Risk: no Genetic History ADVANCED MATERNAL AGE Congenital Heart Defect: Mom: no Dad: no Ivett Disease: Mom: no Dad: no Thalassemia Mom: no Dad: no Neural Tube Defect Mom: no Dad: no Down's Syndrome Mom: no Dad: no Edward-Sachs Mom: no Dad: no Sickle Cell Disease/Trait Mom: no Dad: no Hemophilia Mom: no Dad: no Muscular Dystrophy Mom: no Dad: no Cystic Fibrosis Mom: no Dad: no [place] Chorea Mom: no Dad: no Mental Retardation Mom: no Dad: no Fragile X Mom: no Dad: no Other Genetic/Chromosomal Disorder Mom: no Dad: no Child w/other defect Mom: no Dad: no Enviromental Exposures Xray Exposure: no Medication, drug, or alcohol use since LMP: no Chemical/Other Exposure: no Exposure to Cat Liter: no Hx of Parvovirus (Fifth Disease): no Occupational Exposure to Children: none Current Allergies: No known allergies Patient reports: appetite normal, voiding normally, pain well controlled, ambulating normally : in NICU Objective - Vital Signs Latest vital signs: Vital Signs Temp Pulse Resp BP BP Pulse Ox 12/10/17 04:00 98.7 F 69 18 118/67 12/09/17 23:19 113/57 12/09/17 23:10 98.7 F 88 18 113/57 12/09/17 18:17 131/68 12/09/17 18:05 99.9 F H 88 20 131/68 99 12/09/17 16:26 99.3 F 85 16 117/71 99 12/09/17 14:00 99.3 F 80 16 107/67 99 12/09/17 12:30 99.2 F 81 18 117/63 100 12/09/17 10:00 14 12/09/17 09:00 98.9 F 78 14 115/68 100 12/09/17 08:21 77 97 12/09/17 08:16 75 97 12/09/17 08:11 77 96 12/09/17 08:06 75 96 12/09/17 08:01 76 96 12/09/17 07:56 75 111/61 96 12/09/17 07:55 96.7 F L 76 15 111/61 12/09/17 07:51 78 97 12/09/17 07:46 91 H 95 12/09/17 07:41 82 96 12/09/17 07:36 81 94 12/09/17 07:31 78 95 12/09/17 07:28 86 106/57 12/09/17 07:26 81 95 12/09/17 07:21 80 95 12/09/17 07:16 79 95 12/09/17 07:11 80 94 12/09/17 07:06 79 94 12/09/17 07:01 84 95 12/09/17 06:56 82 94 12/09/17 06:51 80 94 Intake and Output 12/09/17 12/09/17 12/10/17 14:59 22:59 06:59 Intake Total 300 Output Total 1235 400 Balance -1235 -400 300 Intake: Intake, Free Water 300 Output: Urine 1235 400 Indwelling Catheter 1035 Void 200 400 Other: Total, Output Amount 200 400 # Voids Void 1 - Exam Breasts: Present: normal Cardiovascular: Present: Regular rate Lungs: Present: Clear to auscultation, Normal air movement Abdomen: Present: normal appearance, soft, normal bowel sounds Uterus: Present: normal, firm, fundal height below umbilicus Extremities: Present: normal Deep Tendon Reflex Grade: Normal +2 Incision: Present: normal, dry, intact - Labs Labs: Abnormal lab results 12/09/17 12/09/17 12/09/17 Range/Units 06:59 06:59 16:36 WBC 13.2 H (4.5-11.0) K/mm3 RBC 2.43 L (3.65-5.03) M/mm3 Hgb 7.2 L (10.1-14.3) gm/dl Hct 21.7 L (30.3-42.9) % Plt Count 94 L (140-440) K/mm3 Lymph % (Auto) 5.9 L (13.4-35.0) % [place] % (Auto) 7.6 H (0.0-7.3) % Lymph # 0.8 L (1.2-5.4) K/mm3 [place] # 1.0 H (0.0-0.8) K/mm3 Seg Neutrophils % 86.5 H (40.0-70.0) % Seg Neutrophils # 11.4 H (1.8-7.7) K/mm3 Magnesium 5.80 H 4.20 H (1.7-2.3) mg/dL AST 252 H (5-40) units/L ALT 179 H (7-56) units/L 12/10/17 Range/Units 00:11 WBC (4.5-11.0) K/mm3 RBC (3.65-5.03) M/mm3 Hgb (10.1-14.3) gm/dl Hct (30.3-42.9) % Plt Count (140-440) K/mm3 Lymph % (Auto) (13.4-35.0) % [place] % (Auto) (0.0-7.3) % Lymph # (1.2-5.4) K/mm3 [place] # (0.0-0.8) K/mm3 Seg Neutrophils % (40.0-70.0) % Seg Neutrophils # (1.8-7.7) K/mm3 Magnesium 3.80 H (1.7-2.3) mg/dL AST (5-40) units/L ALT (7-56) units/L
[2017-12-10] MEDS: PRENATAL VITAMIN PO SCH (09:54)
[2017-12-10] MEDS: NORCO 5/325 PO PRN ×2 (09:54→20:00)
[2017-12-10] MEDS: NORMODYNE PO SCH ×2 (09:54→22:40)
[2017-12-10 12:35] LABS: Hematocrit 24.4 % (30.3-42.9); Hemoglobin 8.1 gm/dl (10.1-14.3)
[2017-12-10 13:00] LABS: Alanine Aminotransferase 105 units/L (7-56); Albumin 2.9 g/dL (3.9-5)
[2017-12-10 13:11] LABS: Bilirubin,Direct < 0.2 mg/dL (0-0.2)
[2017-12-10] MEDS: FEOSOL PO SCH ×2 (14:00→22:42)
[2017-12-10] MEDS: COLACE PO SCH (22:41)
--- NOTE | 2017-12-11 06:24 | Progress Note ---
Assessment and Plan - Patient Problems (1) delivery delivered Onset Date: ~12/08/17 Current Visit: Yes Status: Acute Plan to address problem: pt sleeping soundly. No c/o voiced during assessment. BP 150-140/70-40 Pt denies DAWSON, blurred vision, chest pain. Temp 100.4 @ 2030; 99.3 @ 0430 Pt encouraged to drink more water and to use IS Q hour while awake. LFT repeated @ noon yesterday and continue to trend down; were still elevated at that time. Pt denies "liver pain" as she had c/o on Friday. Incision D&I, no redness nor swelling. Pt continues to improve s/p section; PreE P: will continue pathway; repeat LFTs ordered for noon Consult with . Subjective - Subjective Date of service: 12/11/17 (pt sleeping ) Principal diagnosis: POD #3 s/p stat c/s d/t NRFT with Pre E/ HEELP Interval history: EDC Confirmation: 02/21/2018 Gestational Age: 7 5/7 weeks Past History : 3 Premature Births: 2 Living Children: 2 Para: 2 # 1 Delivery date: 1996 Weeks Gestation: 35 labor: yes Delivery type: Anesthesia type: none Delivery location: [facility] Sex: Female weight: 4-12 Comments: PTL # 2 Delivery date: 2000 Weeks Gestation: 36 Delivery type: Anesthesia type: none Delivery location: [place] Infant Sex: Female weight: 5-13 Comments: dilated - painful ctx Risk Factors: Smoked Tobacco Use: Never smoker Smokeless Tobacco Use: Never Passive smoke exposure: no Drug use: no HIV high-risk behavior: low risk Caffeine use: 0 drinks per day Alcohol use: yes Type: occ Drinks per day: <1 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 Infection History Hx of STD: none HIV Risk Eval: low risk Hepatitis B Risk Eval: low risk Personal hx. of genital herpes: no Partner hx. of genital herpes: no Rash, Viral, or Febrile illness since last LMP? no Varicella/Chicken Pox Status: Previous Disease TB Risk: no Genetic History ADVANCED MATERNAL AGE Congenital Heart Defect: Mom: no Dad: no Ivett Disease: Mom: no Dad: no Thalassemia Mom: no Dad: no Neural Tube Defect Mom: no Dad: no Down's Syndrome Mom: no Dad: no Edward-Sachs Mom: no Dad: no Sickle Cell Disease/Trait Mom: no Dad: no Hemophilia Mom: no Dad: no Muscular Dystrophy Mom: no Dad: no Cystic Fibrosis Mom: no Dad: no [place] Chorea Mom: no Dad: no Mental Retardation Mom: no Dad: no Fragile X Mom: no Dad: no Other Genetic/Chromosomal Disorder Mom: no Dad: no Child w/other defect Mom: no Dad: no Enviromental Exposures Xray Exposure: no Medication, drug, or alcohol use since LMP: no Chemical/Other Exposure: no Exposure to Cat Liter: no Hx of Parvovirus (Fifth Disease): no Occupational Exposure to Children: none Current Allergies: No known allergies Patient reports: appetite normal, voiding normally, pain well controlled, ambulating normally [place]: in NICU Objective - Vital Signs Latest vital signs: Vital Signs Temp Pulse Resp BP BP Pulse Ox 12/11/17 04:30 99.3 F 77 18 142/78 12/11/17 00:15 98.6 F 66 18 147/43 12/10/17 22:40 68 138/78 12/10/17 20:35 100.7 F H 91 H 18 153/67 12/10/17 15:55 98.7 F 86 18 121/63 100 12/10/17 13:28 82 126/78 99 12/10/17 12:07 99.0 F 82 24 127/76 97 12/10/17 10:32 99.0 F 91 H 24 122/73 100 12/10/17 09:54 111/61 12/10/17 07:27 98.9 F 79 16 111/61 97 Intake and Output 12/10/17 12/10/17 12/11/17 14:59 22:59 06:59 Intake Total 680 480 Balance 680 480 Intake: Oral 680 480 Other: Total, Intake Amount 200 240 # Voids Void 1 1 - Exam Breasts: Present: normal Cardiovascular: Present: Regular rate Lungs: Present: Clear to auscultation, Normal air movement, Other (pt has clear breathe sounds STRONGLY encouraged to use IS more often) Abdomen: Present: normal appearance, soft, normal bowel sounds Uterus: Present: normal, firm, fundal height below umbilicus Extremities: Present: normal Deep Tendon Reflex Grade: Normal +2 Incision: Present: normal, dry, intact - Labs Labs: Abnormal lab results 12/10/17 12/10/17 Range/Units 12:24 12:24 Hgb 8.1 L (10.1-14.3) gm/dl Hct 24.4 L (30.3-42.9) % AST 74 H (5-40) units/L ALT 105 H (7-56) units/L Total Protein 5.6 L (6.3-8.2) g/dL Albumin 2.9 L (3.9-5) g/dL
[2017-12-11] MEDS: COLACE PO SCH (10:08)
[2017-12-11] MEDS: FEOSOL PO SCH ×2 (10:08→22:00)
[2017-12-11] MEDS: NORMODYNE PO SCH ×2 (10:09→22:05)
[2017-12-11] MEDS: NORCO 5/325 PO PRN (10:10)
[2017-12-11 13:27] LABS: Alanine Aminotransferase 88 units/L (7-56); Albumin 2.8 g/dL (3.9-5)
[2017-12-11 13:32] LABS: Bilirubin,Direct < 0.2 mg/dL (0-0.2)
[2017-12-11] MEDS ORDERED: TYLENOL ONE (14:21)
[2017-12-11] MEDS ORDERED: TYLENOL PO PRN (14:27)
--- NOTE | 2017-12-11 18:46 | Event Note ---
Date: 12/11/17 Sitting in chair at bedside, no complaints, +flatus, breasts sl engorged, Lungs CTAB, abd: soft, +BS, incision c/d/i, steristrips in palce, no s/s infection, Exts trace edema, NT, AVSS No obvious s/s infection She will increase pumping to q2-2.5hrs and ambulate with assistance ?d/c tomorrow if still afebrile and VSS Patient agrees with plan of care
[2017-12-11] MEDS: TYLENOL PO SCH (22:05)
[2017-12-12] MEDS: TYLENOL PO SCH ×3 (01:00→12:45)
--- NOTE | 2017-12-12 08:58 | Discharge Summary ---
Providers - Providers Date of Admission: 12/08/17 07:38 Date of discharge: 12/12/17 Attending physician: TERI CAO 12/09/17 01:28 Consult to Traffic Control Flagger [CONS] Routine Reason For Exam: Primary care physician: TERI CAO Hospitalization Reason for admission: HELLP syndrome Condition: Good Pertinent studies: Postop H&H 8.1/24.4 AST/ALT 64/88 (down from 401/249) Procedures: stat c/s for distress Hospital course: c/s and course complicated by HELLP syndrome Disposition: DC-01 TO HOME OR SELFCARE - Discharge Diagnoses (1) delivery delivered Status: Acute (2) HELLP syndrome (HELLP), third trimester Status: Acute Core Measure Documentation - Palliative Care Palliative Care/ Comfort Measures: Not Applicable - Core Measures Any of the following diagnoses?: none Exam - Constitutional Vitals: Temp Pulse Resp BP Pulse Ox 97.9 F 63 16 169/82 99 12/12/17 08:09 12/12/17 08:09 12/12/17 08:09 12/12/17 08:09 12/12/17 08:09 General appearance: Present: no acute distress, well-nourished - EENT Eyes: Present: PERRL ENT: hearing intact, clear oral mucosa - Neck Neck: Present: supple, normal ROM - Respiratory Respiratory effort: normal Respiratory: bilateral: CTA - Cardiovascular Heart Sounds: Present: S1 & S2. Absent: rub, click - Extremities Extremities: pulses symmetrical, No edema Peripheral Pulses: within normal limits - Abdominal General gastrointestinal: Present: soft, non-tender, non-distended, normal bowel sounds Female genitourinary: Present: normal - Integumentary Integumentary: Present: clear, warm, dry - Musculoskeletal Musculoskeletal: gait normal, strength equal bilaterally - Psychiatric Psychiatric: appropriate mood/affect, intact judgment & insight - Neurologic Neurologic: CNII-XII intact, moves all extremities - Additional findings Additional findings: incision D&I, fundus firm, lochia scant, afebrile >24h, pumping breasts, infant in NICU Plan Activity: advance as tolerated Diet: regular Wound: open to air, keep clean and dry Follow up with: TERI CAO MD [Primary Care Provider] - 7 Days (Congratulations! Please call [phone] to schedule your incision check in 1 week. Call for any complaints of headaches, vision changes or pain in your upper abdomen or chest. ) Prescriptions: Docusate Sodium [Colace] 100 mg PO BID #60 capsule Ferrous Sulfate [Feosol 325 MG tab] 325 mg PO BID #90 tablet Labetalol [Normodyne TAB] 200 mg PO BID #60 tablet
[2017-12-12] MEDS: PRENATAL VITAMIN PO SCH (10:00)
[2017-12-12] MEDS: NORMODYNE PO SCH (10:15)
[2017-12-12] MEDS: COLACE PO SCH (10:15)
[2017-12-12] MEDS: FEOSOL PO SCH (10:15)
[2017-12-12 12:33] VITALS: BP 164/75
== END 2017-12-12 13:00 | disposition home or self-care (01) | DRG 766 ==
LOC: TRG 07:37 → LD 07:38 → TRG 07:44 → LD 08:17 → TRG 09:31 → OB 12-09 09:25
PROVIDERS: ADMIT Obstetrics & Gynecology; ATTEND Obstetrics & Gynecology
PROC: 10D00Z1 Extraction of Products of Conception, Low, Open Approach (ICD-10-PCS; principal; 2017-12-08)
DX: O60.14X0 Preterm labor third trimester with preterm delivery third trimester, not applicable or unspecified (principal); Z3A.29 29 weeks gestation of pregnancy; O99.89 Other specified diseases and conditions complicating pregnancy, childbirth and the puerperium; R00.1 Bradycardia, unspecified; O14.24 HELLP syndrome, complicating childbirth; O77.9 Labor and delivery complicated by fetal stress, unspecified; O34.13 Maternal care for benign tumor of corpus uteri, third trimester; D25.9 Leiomyoma of uterus, unspecified
CPT/HCPCS: 36415; 76805; 80048; 80053; 80074; 80307; 81001; 82565; 82962; 83615; 83735; 84156; 84450; 84460; 84550; 85007; 85014; 85018; 85025; 86850; 86900; 86901; 88307; 99211; G0463; J0330; J0360; J0690; J0702; J1170; J1200; J1940; J2405; J2590; J2704; J2765; J3010; J3105; J3475; J7120